=== PATIENT | female | born 1985 | race Caucasian/White ===

== ENCOUNTER 2022-05-20 11:10 | Inpatient (IN) | payer MEDICAID, OTHER ==
[~2022-05-20] VITALS: Ht 160 cm; Wt 113.4 kg
[2022-05-20] MEDS ORDERED: PROPOFOL 200MG/20ML VIAL IV ONE (12:03)
[2022-05-20] MEDS ORDERED: ROCURONIUM BROMIDE 10MG/ML VIAL 5ML IV ONE (12:09)
[2022-05-20] MEDS ORDERED: MIDAZOLAM HCL 2 MG/2 ML VIAL ONE ×3 (12:25→13:45)
[2022-05-20] MEDS ORDERED: SUCCINYLCHOLINE CHLORIDE 200MG/10ML IV ONE (12:28)
[2022-05-20] MEDS ORDERED: OXYTOCIN 30 UNITS/500ML NS PMX 500 ML IV SCH ×2 (12:30→13:30)
[2022-05-20] MEDS ORDERED: METHYLERGONOVINE MALEATE 0.2 MG/ML IM PRN (12:30)
[2022-05-20] MEDS ORDERED: CARBOPROST TROMETHAMINE 250 MCG/ML AMPUL IM PRN (12:30)
[2022-05-20] MEDS ORDERED: LACTATED RINGERS 1,000 ML IV SCH (12:30)
[2022-05-20] MEDS ORDERED: ONDANSETRON HCL 4MG/2ML INJ ONE (12:31)
[2022-05-20] MEDS ORDERED: CEFAZOLIN SODIUM 1000MG/VIAL ONE (12:33)
[2022-05-20] MEDS ORDERED: DEXAMETHASONE 4MG/ML 1ML VIAL ONE (12:33)
[2022-05-20] MEDS ORDERED: FENTANYL CITRATE/PF 50MCG/ML 2ML VIAL ONE ×2 (12:36→13:13)
[2022-05-20 12:39] LABS: BASOPHILS % 0.2 % (0.0-2.0); EOSINOPHILS % 1.5 % (0.0-5.0); HEMATOCRIT. 33.5 % (36.0-48.0); HEMOGLOBIN. 10.7 g/dL (12.0-16.0); LYMPHOCYTES % 16.4 % (20.0-50.0); MEAN CORPUSCULAR HEMOGLOBIN 27.4 pg (28.0-32.0); MEAN CORPUSCULAR VOLUME 85.8 fL (81.0-99.0); MEAN PLATELET VOLUME 7.6 fl (7.4-10.4); MONOCYTES % 6.1 % (2.0-8.0); NEUTROPHILS % 75.8 % (40.0-76.0); PLATELET 364 x1000/uL (130-400); RED BLOOD CELL COUNT 3.91 mill/uL (4.2-5.4); RED CELL DISTRIBUTION WIDTH 14.1 % (11.6-14.6)
[2022-05-20 12:45] LABS: CLARITY URINE CLOUDY (CLEAR); COLOR URINE YELLOW (YELLOW); KETONES URINE TRACE (NEGATIVE); LEUKOCYTE ESTERASE URINE NEGATIVE (NEGATIVE); NITRITE URINE NEGATIVE (NEGATIVE); OCCULT BLOOD URINE 1+ (NEGATIVE); PROTEIN URINE 1+ (NEGATIVE); SPECIFIC GRAVITY URINE 1.038 (1.005-1.030)
[2022-05-20 12:48] LABS: CHLORIDE 108 mEq/L (98-107)
[2022-05-20 13:13] LABS: *AMPHETAMINES SCREEN URINE NEGATIVE (NEGATIVE); *BARBITURATES SCREEN URINE NEGATIVE (NEGATIVE); *BENZODIAZEPINES SCREEN URINE NEGATIVE (NEGATIVE); *COCAINE SCREEN URINE NEGATIVE (NEGATIVE); CANNABINOID URINE SCREEN NEGATIVE (NEGATIVE); METHADONE URINE SCREEN NEGATIVE (NEGATIVE); OPIATES URINE SCREEN NEGATIVE (NEGATIVE); PHENCYCLIDINE URINE SCREEN NEGATIVE (NEGATIVE)
[2022-05-20] MEDS ORDERED: LANOLIN OINT 7GM TUBE TOP PRN (13:30)
[2022-05-20] MEDS ORDERED: RHO(D) IMMUNE GLOBULIN 300 MCG/SYR IM PRN (13:30)
[2022-05-20] MEDS ORDERED: HYDROCODONE/ACETAMINOPHEN 5/325MG TABLET PO PRN (13:30)
[2022-05-20] MEDS ORDERED: BISACODYL 10MG SUPP PR PRN (13:30)
[2022-05-20] MEDS ORDERED: IBUPROFEN 400MG TABLET PO PRN (13:30)
[2022-05-20] MEDS ORDERED: ONDANSETRON HCL 4MG/2ML INJ IV PRN (13:30)
[2022-05-20 13:33] LABS: HEPATITIS B SURFACE ANTIGEN NEGATIVE
[2022-05-20] MEDS ORDERED: NALOXONE HCL 0.4MG/ML VIAL IV PRN (13:45)
[2022-05-20 13:47] LABS: INR 0.9; PARTIAL THROMBOPLASTIN TIME 28.6 sec (23.4-31.0)
[2022-05-20] MEDS ORDERED: FENTANYL CITRATE/PF 50MCG/ML 2ML VIAL IV PRN (14:15)
[2022-05-20] MEDS: HYDROMORPHONE HCL/PF 2MG/ML CPJ IV PRN ×5 (14:59→22:04)
[2022-05-20 16:00] VITALS: BP 117/63
[2022-05-20] MEDS ORDERED: HYDROMORPHONE HCL/PF 2MG/ML CPJ IV PRN (16:00)
[2022-05-20 16:30] VITALS: BP 107/57
[2022-05-20 17:00] VITALS: BP 109/55
[2022-05-20] MEDS ORDERED: HYDROMORPHONE HCL/PF 2MG/ML CPJ IM PRN (19:00)
[2022-05-20 20:00] VITALS: BP 108/38
[2022-05-20] MEDS: DOCUSATE SODIUM 100MG CAPSULE PO SCH (21:00)
[2022-05-20] MEDS ORDERED: ALBUTEROL (0.5%) 2.5MG/0.5ML NEB HHN PRN (23:15)
[2022-05-20] MEDS ORDERED: FLUTICASONE PROPIONATE 50MCG/SPRAY BOTTLE BOTHNSTRLS PRN (23:15)
[2022-05-21] MEDS: HYDROMORPHONE HCL/PF 2MG/ML CPJ IV PRN ×2 (00:12→03:27)
[2022-05-21 03:59] VITALS: BP 108/58
[2022-05-21] MEDS ORDERED: ALBUTEROL (0.083%) 2.5MG/3ML NEB ONE (04:47)
[2022-05-21] MEDS ORDERED: ALBUTEROL (0.5%) 2.5MG/0.5ML NEB HHN PRN (05:00)
[2022-05-21 05:57] LABS: BASOPHILS % 0.1 % (0.0-2.0); EOSINOPHILS % 0.4 % (0.0-5.0); HEMATOCRIT. 30.2 % (36.0-48.0); HEMOGLOBIN. 9.9 g/dL (12.0-16.0); LYMPHOCYTES % 18.4 % (20.0-50.0); MEAN CORPUSCULAR HEMOGLOBIN 28.1 pg (28.0-32.0); MEAN CORPUSCULAR VOLUME 85.9 fL (81.0-99.0); MEAN PLATELET VOLUME 7.6 fl (7.4-10.4); MONOCYTES % 5.2 % (2.0-8.0); NEUTROPHILS % 75.9 % (40.0-76.0); PLATELET 376 x1000/uL (130-400); RED BLOOD CELL COUNT 3.51 mill/uL (4.2-5.4); RED CELL DISTRIBUTION WIDTH 13.9 % (11.6-14.6)
[2022-05-21] MEDS: HYDROCODONE/ACETAMINOPHEN 5/325MG TABLET PO PRN ×4 (06:23→21:26)
[2022-05-21 08:00] VITALS: BP 106/54
[2022-05-21] MEDS: PRENATAL VIT/FE FUMARATE/FA TABLET PO SCH (10:20)
[2022-05-21] MEDS: IBUPROFEN 800MG TABLET PO PRN ×2 (13:18→19:45)
[2022-05-21 16:00] VITALS: BP 109/42
[2022-05-21] MEDS: DOCUSATE SODIUM 100MG CAPSULE PO SCH (19:44)
[2022-05-21 20:00] VITALS: BP 115/73
[2022-05-22] MEDS: IBUPROFEN 800MG TABLET PO PRN ×3 (01:48→19:48)
[2022-05-22 04:12] VITALS: BP 119/55
[2022-05-22] MEDS: HYDROCODONE/ACETAMINOPHEN 5/325MG TABLET PO PRN ×3 (07:24→22:21)
[2022-05-22] MEDS: PRENATAL VIT/FE FUMARATE/FA TABLET PO SCH (08:13)
[2022-05-22 15:59] VITALS: BP 117/50
[2022-05-22 19:30] VITALS: BP 130/68
[2022-05-22] MEDS: DOCUSATE SODIUM 100MG CAPSULE PO SCH (19:48)
[2022-05-23] MEDS: IBUPROFEN 800MG TABLET PO PRN (03:59)
[2022-05-23 04:00] VITALS: BP 103/53
[2022-05-23] MEDS: HYDROCODONE/ACETAMINOPHEN 5/325MG TABLET PO PRN ×2 (06:40→10:47)
[2022-05-23 07:30] VITALS: BP 132/74
[2022-05-23] MEDS: PRENATAL VIT/FE FUMARATE/FA TABLET PO SCH (10:46)
[2022-05-23] MEDS ORDERED: ALBUTEROL (0.083%) 2.5MG/3ML NEB ONE (11:10)
== END 2022-05-23 11:20 | disposition home or self-care (01) | DRG 540 ==
LOC: 8 EST LDRP 11:10 → OBSVTOIN 11:10 → 8EST 15:30
PROVIDERS: ADMIT Obstetrics & Gynecology; ATTEND Obstetrics & Gynecology
PROC: 10D00Z1 Extraction of Products of Conception, Low, Open Approach (ICD-10-PCS; principal; 2022-05-20)
DX: O76 Abnormality in fetal heart rate and rhythm complicating labor and delivery (principal); O45.93 Premature separation of placenta, unspecified, third trimester; O60.14X0 Preterm labor third trimester with preterm delivery third trimester, not applicable or unspecified; O32.2XX0 Maternal care for transverse and oblique lie, not applicable or unspecified; O99.344 Other mental disorders complicating childbirth; J45.909 Unspecified asthma, uncomplicated; Z20.822 Contact with and (suspected) exposure to COVID-19; O99.52 Diseases of the respiratory system complicating childbirth; F41.1 Generalized anxiety disorder; Z37.0 Single live birth; Z85.3 Personal history of malignant neoplasm of breast; Z3A.29 29 weeks gestation of pregnancy
CPT/HCPCS: 36415; 71045; 76805; 76818; 80053; 80305; 81003; 85025; 86592; 86703; 86762; 86803; 86850; 86900; 87070; 87340; 87426; 88307; 94640; C1893; J0330; J0690; J1100; J1170; J2250; J2405; J2704; J3010; J3490; J7120; A4315; J2590